=== PATIENT | female | born 1995 | race African-American/Black ===

== ENCOUNTER 2021-04-04 06:13 | Emergency (ER) | payer MEDICAID ==
[~2021-04-04] VITALS: Ht 162.6 cm; Wt 65.0 kg
[2021-04-04 06:21] VITALS: BP 127/55
== END 2021-04-04 08:04 | disposition left against medical advice (07) ==
LOC: ER 06:13
DX: R10.9 Unspecified abdominal pain (principal); R53.1 Weakness; R11.10 Vomiting, unspecified
CPT/HCPCS: 93005; 99281